=== PATIENT | male | born 1970 | race Two or more races ===

== ENCOUNTER 2021-11-17 19:07 | Emergency (ER) | payer OTHER ==
[~2021-11-17] VITALS: Ht 180.3 cm; Wt 86.2 kg
[2021-11-17] MEDS ORDERED: AVAPRO75 MG (19:16)
[2021-11-17] MEDS ORDERED: VITAMIN B-121000 MC4 (19:16)
[2021-11-17] MEDS ORDERED: KAPSPARGO SPRIN25 MG (19:16)
[2021-11-17] MEDS ORDERED: BENICAR5 MG (19:16)
[2021-11-17] MEDS ORDERED: CHILDREN'S ASPI81 MG (19:16)
== END 2021-11-17 23:35 | disposition home or self-care (01) ==
LOC: ER 19:07
DX: M79.662 Pain in left lower leg (principal); M79.661 Pain in right lower leg; D69.6 Thrombocytopenia, unspecified; D72.829 Elevated white blood cell count, unspecified; I10 Essential (primary) hypertension; Z88.0 Allergy status to penicillin

== ENCOUNTER 2023-08-04 09:28 | Emergency (ER) | payer OTHER ==
[~2023-08-04] VITALS: Ht 180.3 cm; Wt 86.2 kg
[~2023-08-04 09:28] MED LIST: AVAPRO75 MG; BENICAR5 MG; CHILDREN'S ASPI81 MG; KAPSPARGO SPRIN25 MG; VITAMIN B-121000 MC4
[2023-08-04] MEDS ORDERED: PLAVIX75 MG (10:38)
[2023-08-04] MEDS ORDERED: ZOLOFT25 MG PO (10:38)
== END 2023-08-04 11:09 | disposition home or self-care (01) ==
LOC: ER 09:28
DX: H60.8X2 Other otitis externa, left ear (principal); Z88.0 Allergy status to penicillin